=== PATIENT | male | born 1960 | race Two or more races ===

== ENCOUNTER 2017-01-22 12:31 | Inpatient (IN) | payer OTHER ==
[~2017-01-22] VITALS: Ht 162.6 cm; Wt 104.3 kg
--- NOTE | 2017-01-22 13:53 | PHYS DOC ---
Past Medical History Past Medical History: Diabetes-Type I, High Cholesterol, Hypertension Past Surgical History: No Surgical History Alcohol Use: Occasionally Drug Use: None Adult General Chief Complaint Chief Complaint: WEAKNESS/GENERALIZED HPI HPI Patient is a 56 year old male who presents with right arm numbness and tingling since Sunday that comes and goes. Patient was visiting family upstairs in the hospital and the nurses convinced him come to the emergency room to be evaluated. Agent believes is related to his new insulin and states that every time he gives himself a shot of insulin his right arm becomes numb and tingling and then it resolved shortly after. Patient denies any headache or vision changes. Patient denies any neck pain. Patient denies any chest pain or shortness of breath. Patient denies any other symptoms. Currently the patient in the emergency room has no symptoms and is asymptomatic. Pertinent exam findings: Cranial nerves II through XII are grossly intact with no focal neurological deficits. Heart regular rate and rhythm without murmurs CTAB No Altered sensation between the right and left upper shoulder and ED course: Patient was seen and evaluated in the emergency room CBC, CMP, troponin, CT of the head without contrast was ordered 1600: Patient is reexamined stating he is asymptomatic however the CT scan shows an acute stroke to the left brain and will omit to the hospital Dr. Shannon is his PCP 1605: Paged Dr. Shannon 1612: Discussed CC/HP/PMH with Dr. Rangel and recommends admit and consult neurology Pertinent results: CT scan of brain was done without contrast. Visualized sinuses are clear. There is no intracranial hemorrhage or subdural hematoma. Ventricles are normal in size. There is no mass or shift of the midline. There is a focus of decreased attenuation in the white matter adjacent to the lateral ventricle in the on the left side consistent with an acute CVA. Impression: 1. 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 2. No intracranial hemorrhage CXR: NAD MDM: After reviewing the chart, CC/HPI/PMH, physical exam, [lab results], [ radiological results], do not believe the patient is a candidate for TPA since his last known well was Sunday however since he does have an acute stroke and is only 56 years old will admit to the hospital for further evaluation and management and consult neurology Review of Systems Review of Systems Constitutional: Denies fever or chills [] Eyes: Denies change in visual acuity, redness, or eye pain [] HENT: Denies nasal congestion or sore throat [] Respiratory: Denies cough or shortness of breath [] Cardiovascular: No additional information not addressed in HPI [] GI: Denies abdominal pain, nausea, vomiting, bloody stools or diarrhea [] : Denies dysuria or hematuria [] Musculoskeletal: Denies back pain or joint pain [] Integument: Denies rash or skin lesions [] Neurologic: Numbness and tingling to right upper extremity Allergies Allergies Allergies Coded Allergies Type Severity Reaction Last Updated Verified No Known Drug Allergies 01/22/17 No Physical Exam Physical Exam Constitutional: Well developed, well nourished, no acute distress, non-toxic appearance. [] HENT: Normocephalic, atraumatic, bilateral external ears normal, oropharynx moist, no oral exudates, nose normal. [] Eyes: PERRLA, EOMI, conjunctiva normal, no discharge. [] Neck: Normal range of motion, no tenderness, supple, no stridor. [] Cardiovascular:Heart rate regular rhythm, no murmur [] Lungs & Thorax: Bilateral breath sounds clear to auscultation [] Abdomen: Bowel sounds normal, soft, no tenderness, no masses, no pulsatile masses. [] Skin: Warm, dry, no erythema, no rash. [] Back: No tenderness, no CVA tenderness. [] Extremities: No tenderness, no cyanosis, no clubbing, ROM intact, no edema. [] Neurologic: Alert and oriented X 3, normal motor function, normal sensory function, no focal deficits noted. [] Psychologic: Affect normal, judgement normal, mood normal. [] Current Patient Data Vital Signs Vital Signs Date Time Temp Pulse Resp B/P (MAP) Pulse Ox O2 Delivery O2 Flow Rate FiO2 01/22/17 13:11 98.5 73 18 170/80 (110) 98 Room Air 98.5 Lab Values Laboratory Tests Test 01/22/17 13:16 01/22/17 14:18 Glucose (Fingerstick) 307 mg/dL (70-99) H White Blood Count 9.7 x10^3/uL (4.0-11.0) Red Blood Count 5.44 x10^6/uL (4.30-5.70) Hemoglobin 15.0 g/dL (13.0-17.5) Hematocrit 45.9 % (39.0-53.0) Mean Corpuscular Volume 84 fL (79-100) Mean Corpuscular Hemoglobin 28 pg (25-35) Mean Corpuscular Hemoglobin Concent 33 g/dL (31-37) Red Cell Distribution Width 14.0 % (11.5-14.5) Platelet Count 152 x10^3/uL (140-400) Neutrophils (%) (Auto) 65 % (31-73) Lymphocytes (%) (Auto) 25 % (24-48) Monocytes (%) (Auto) 7 % (0-9) Eosinophils (%) (Auto) 3 % (0-3) Basophils (%) (Auto) 1 % (0-3) Neutrophils # (Auto) 6.3 x10^3uL (1.8-7.7) Lymphocytes # (Auto) 2.4 x10^3/uL (1.0-4.8) Monocytes # (Auto) 0.7 x10^3/uL (0.0-1.1) Eosinophils # (Auto) 0.2 x10^3/uL (0.0-0.7) Basophils # (Auto) 0.1 x10^3/uL (0.0-0.2) Sodium Level 140 mmol/L (136-145) Potassium Level 4.5 mmol/L (3.5-5.1) Chloride Level 104 mmol/L (98-107) Carbon Dioxide Level 26 mmol/L (21-32) Anion Gap 10 (6-14) Blood Urea Nitrogen 20 mg/dL (8-26) Creatinine 0.9 mg/dL (0.7-1.3) Estimated GFR (Cockcroft-Gault) 87.3 BUN/Creatinine Ratio 22 (6-20) H Glucose Level 304 mg/dL (70-99) H Calcium Level 9.0 mg/dL (8.5-10.1) Total Bilirubin 0.3 mg/dL (0.2-1.0) Aspartate Amino Transferase (AST) 23 U/L (15-37) Alanine Aminotransferase (ALT) 51 U/L (16-63) Alkaline Phosphatase 162 U/L (46-116) H Troponin I Quantitative < 0.017 ng/mL (0.000-0.055) Total Protein 6.9 g/dL (6.4-8.2) Albumin 3.1 g/dL (3.4-5.0) L Albumin/Globulin Ratio 0.8 (1.0-1.7) L Laboratory Tests 01/22/17 14:18 Laboratory Tests 01/22/17 14:18 EKG EKG Normal sinus rhythm rate of 70 no STEMI [] Radiology/Procedures Radiology/Procedures History: Right arm paresthesias CT scan of brain was done without contrast. Visualized sinuses are clear. There is no intracranial hemorrhage or subdural hematoma. Ventricles are normal in size. There is no mass or shift of the midline. There is a focus of decreased attenuation in the white matter adjacent to the lateral ventricle in the on the left side consistent with an acute CVA. Impression: 1. 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 2. No intracranial hemorrhage CXR: NAD[] Course & Med Decision Making Course & Med Decision Making Pertinent Labs and Imaging studies reviewed. (See chart for details) [] Dragon Disclaimer Dragon Disclaimer This electronic medical record was generated, in whole or in part, using a voice recognition dictation system. Departure Departure Impression: Primary Impression: CVA (cerebral vascular accident) Admitting Physician: Other (Juan Carlos) Condition: STABLE Referrals: JEAN SHANNON MD (PCP) Problem Qualifiers Primary Impression: CVA (cerebral vascular accident) CVA mechanism: occlusion Precerebral and cerebral artery: unspecified precerebral artery Qualified Codes: I63.20 - Cerebral infarction due to unspecified occlusion or stenosis of unspecified precerebral arteries ANNEMARIE ZHANG DO January 22, 2017 13:53
--- NOTE | 2017-01-22 14:10 | RAD ---
Portable AP chest. History: Right arm paresthesias x2 days, hypertension, diabetes AP view was taken of the chest. Lungs are free of infiltrates. Heart is normal in size. There is no pleural effusion. There is a calcified lesion in the humerus on the left suggesting a chondroid tumor such as an in chondroma. Impression: 1. No acute infiltrates. 2. Chondroid lesion left humerus.
[2017-01-22 14:29] LABS: BASO # 0.1 x10^3/uL (0.0-0.2); BASO % 1 % (0-3); EOS % 3 % (0-3); HEMATOCRIT 45.9 % (39.0-53.0); LYMPH # 2.4 x10^3/uL (1.0-4.8); LYMPH % 25 % (24-48); MEAN CORPUSCULAR HEMOGLOBIN 28 pg (25-35); MEAN CORPUSCULAR HGB CONC 33 g/dL (31-37); MEAN CORPUSCULAR VOLUME 84 fL (79-100); MONO % 7 % (0-9); NEUT % 65 % (31-73); PLATELET COUNT 152 x10^3/uL (140-400); RED BLOOD COUNT 5.44 x10^6/uL (4.30-5.70); WHITE BLOOD COUNT 9.7 x10^3/uL (4.0-11.0)
--- NOTE | 2017-01-22 14:46 | EKG ---
[facility] [address] [place] [address] Test Date: 2017-01-22 Test Time: 13:10:08 Pat Name: TARA ESPARZA Department: Room: Gender: M [employer]: : 1960 Requested By: ANNEMARIE ZHANG Order Number: [id number] Reading MD: Son Cross Measurements Intervals [place] Rate: 70 P: 18 [place]: 184 QRS: -39 QRSD: 90 T: 73 QT: 396 QTc: 430 Interpretive Statements SINUS RHYTHM ABNORMAL LEFT AXIS DEVIATION LEFT ANTERIOR FASCICULAR BLOCK Electronically Signed On 01-23-2017 10:37:17 CDT by Son Cross
[2017-01-22 14:47] LABS: CREATININE 0.9 mg/dL (0.7-1.3); GFR 87.3; POTASSIUM 4.5 mmol/L (3.5-5.1)
--- NOTE | 2017-01-22 14:47 | RAD ---
One or more of the following individualized dose reduction techniques were utilized for this examination: 1. Automated exposure control 2. Adjustment of the mA and/or kV according to patient size 3. Use of iterative reconstruction technique CT brain without contrast. History: Right arm paresthesias CT scan of brain was done without contrast. Visualized sinuses are clear. There is no intracranial hemorrhage or subdural hematoma. Ventricles are normal in size. There is no mass or shift of the midline. There is a focus of decreased attenuation in the white matter adjacent to the lateral ventricle in the on the left side consistent with an acute CVA. Impression: 1. 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 2. No intracranial hemorrhage
[2017-01-22 14:53] LABS: ALBUMIN 3.1 g/dL (3.4-5.0); ALBUMIN/GLOBULIN RATIO 0.8 (1.0-1.7); TOTAL BILIRUBIN 0.3 mg/dL (0.2-1.0); TOTAL PROTEIN 6.9 g/dL (6.4-8.2)
[2017-01-22] MEDS ORDERED: MORPHINE SULFATE 2 MG/ML DISP.SYRIN. IV PRN (16:30)
[2017-01-22] MEDS ORDERED: ONDANSETRON PF 4 MG/2 ML VIAL. IV PRN (16:30)
[2017-01-22 18:07] VITALS: BP 179/81
[2017-01-22] MEDS ORDERED: LISI10TA2 PO (18:34)
[2017-01-22] MEDS ORDERED: INSU100I13 SQ (18:34)
[2017-01-22] MEDS ORDERED: EXEN10PE SQ (18:34)
[2017-01-22] MEDS ORDERED: METF500T4 PO (18:35)
[2017-01-22] MEDS ORDERED: ATOR40TA59 PO (18:35)
[2017-01-22] MEDS ORDERED: LISINOPRIL 20 MG TABLET PO ONE (20:00)
[2017-01-22] MEDS: hydrALAZINE 20 MG/ML VIAL. IVP PRN (20:38)
[2017-01-22] MEDS: INSULIN DETEMIR 300 UNITS/3 ML INSULN.PEN. SQ SCH (20:49)
[2017-01-22] MEDS ORDERED: CETI10TA22 PO (22:09)
--- NOTE | 2017-01-22 22:12 | ACF ---
Admission Forms Criteria TELEMETRY CARE Telemetry Admission Guidelines (Place 'X' for any and all applicable criteria): Admission to telemetry [A] may be indicated for ANY ONE of the following(1)(2)(3 )(4)(5): [ ]I. Cardiac disease, including ANY ONE of the following (9)(10)(11)(12)(13 ): [ ]a) Postacute WI [ ]b) Low-risk patients with ST-segment elevation WI who have undergone successful percutaneous coronary intervention [ ]c) Unstable angina [ ]d) Suspected WI (until it is ruled out) [ ]e) Post cardiac surgery (first 48 to 72 hours unless complications occur) [ ]f) Acute arrhythmias (including significant tachycardia or bradycardia) [B] [ ]g) Firing of an implantable cardioverter defibrillator [C] [ ]h) Suspected pacemaker or implantable cardioverter defibrillator malfunction (10) [ ]i) New administration or adjustment of an antiarrhythmic drug [D ] [ ]j) Child admitted for acute congestive heart failure [ ]j) Long QT syndrome [ ]k) Advanced heart block (eg, second-degree Mobitz type II, third- degree heart block) [ ]l) Acute myocarditis or pericarditis [ ]m) Short-term (ambulatory or inpatient) monitoring after a cardiac procedure as indicated by ANY ONE of the following [E]: [ ]i) Electrophysiologic studies [ ]ii) Percutaneous coronary intervention with stent placement [ ]iii) Pacemaker placement with cardiac conduction defect [ ]iv) Implantable cardiac defibrillator placement [ ]II. Drug overdose or poisoning with substance that causes arrhythmias or QT prolongation (eg, phenothiazines, sympathomimetic agents, cyclic antidepressants, digitalis, antiarrhythmic drugs)(15) [ ]III. Short-term (ambulatory or inpatient) monitoring after therapeutic or diagnostic procedure requiring conscious sedation or anesthesia (eg, endoscopy, elective cardioversion) [X ]IV. Acute cerebrovascular even[F](18) [ ]V. Massive blood transfusion (eg, at least 10 units of packed red blood cells in 24 hours) [ ]. Variceal bleeding after endoscopy, sclerotherapy, or IV vasopressin [ ]VII. Uncorrected electrolyte abnormalities associated with an increased risk of dangerous arrhythmia [G]; examples include [ ]a) Hyperkalemia with attributable ECG changes [ ]b) Potassium greater than 6.5 mmol/L (mEq/L) in a patient without history of chronic renal disease [ ]c) Prolonged QT attributed to hypokalemia, hypomagnesemia, or hypocalcemia [ ]VIII.Unexplained syncope or other neurologic event suspected of being due to arrhythmia due to a finding that increases risk; examples include(19)(20)(21): [ ]a) High-risk ECG findings (eg, bifascicular block, bradycardia, abnormal QT interval, ventricular pre- excitation) [ ]b) History of previous syncope due to arrhythmia [ ]c) Abnormal ventricular function (eg, reduced ejection fraction ) [ ]d) Exertional or supine syncope [ ]e) Concerning syncope characteristics (eg, sudden loss of consciousness without prodrome) [ ]f) Family history of sudden [ ]g) Use of arrhythmogenic medication [ ]h) Suspected cardiac ischemia [ ]i) Known channelopathy (eg, long QT syndrome, Brugada syndrome, or catecholaminergic paroxysmal ventricular tachycardia) [ ]j) Known structural heart disease (eg, hypertrophic cardiomyopathy , severe valvular disease) [ ]k) Palpitations preceding syncope The original [employer] content created by [employer] has been revised. The portions of the content which have been revised are identified through the use of italic text or in bold, and [email or web address] has neither reviewed nor approved the modified material. All other unmodified content is copyright [employer]. Please see references footnoted in the original [employer] edition 2016 Admission Criteria Met?: Yes CHRISTIANE LOPES January 22, 2017 22:12
[2017-01-22] MEDS ORDERED: CETIRIZINE HCL 10 MG TABLET. PO ONE (22:30)
[2017-01-22 23:31] VITALS: BP 161/84
[2017-01-23] VITALS (7 sets, daily range): BP systolic 126–170; BP diastolic 70–96
[2017-01-23] MEDS ORDERED: INSU3INS SQ (05:45)
[2017-01-23 06:02] LABS: BASO # 0.1 x10^3/uL (0.0-0.2); BASO % 1 % (0-3); EOS % 2 % (0-3); HEMATOCRIT 44.9 % (39.0-53.0); HEMOGLOBIN 15.3 g/dL (13.0-17.5); LYMPH # 2.4 x10^3/uL (1.0-4.8); LYMPH % 22 % (24-48); MEAN CORPUSCULAR HEMOGLOBIN 28 pg (25-35); MEAN CORPUSCULAR HGB CONC 34 g/dL (31-37); MEAN CORPUSCULAR VOLUME 82 fL (79-100); MONO % 6 % (0-9); NEUT % 70 % (31-73); PLATELET COUNT 156 x10^3/uL (140-400); RED BLOOD COUNT 5.49 x10^6/uL (4.30-5.70); RED CELL DISTRIBUTION WIDTH 14.2 % (11.5-14.5); WHITE BLOOD COUNT 11.1 x10^3/uL (4.0-11.0)
[2017-01-23 06:12] LABS: CALCIUM 8.4 mg/dL (8.5-10.1); CREATININE 0.9 mg/dL (0.7-1.3); GFR 87.3; POTASSIUM 3.4 mmol/L (3.5-5.1)
[2017-01-23] MEDS: CETIRIZINE HCL 10 MG TABLET. PO SCH (08:31)
[2017-01-23] MEDS: LISINOPRIL 20 MG TABLET PO SCH (08:32)
[2017-01-23] MEDS ORDERED: DEXTROSE 50% 25 GM / 50ML DISP.SYRIN. IV PRN ×2 (09:00)
[2017-01-23] MEDS ORDERED: 0.9 % SODIUM CHLORIDE 10 ML DISP.SYRIN. IV PRN (09:00)
[2017-01-23] MEDS ORDERED: ACETAMINOPHEN 650 MG SUPP.RECT. PR PRN (09:00)
[2017-01-23] MEDS ORDERED: ONDANSETRON PF 4 MG/2 ML VIAL. IV PRN (09:00)
[2017-01-23] MEDS: ACETAMINOPHEN 325 MG TABLET. PO PRN ×2 (09:32→21:42)
[2017-01-23] MEDS: ASPIRIN CHEWABLE 81 MG TABLET. PO SCH (09:32)
[2017-01-23] MEDS: IV NORMAL SALINE 1000ML BAG 1,000 ML IV SCH ×2 (09:33→19:26)
[2017-01-23] MEDS: hydrALAZINE 20 MG/ML VIAL. IVP PRN (10:42)
--- NOTE | 2017-01-23 11:27 | HP ---
ADMIT DATE: 01/22/2017 ADMISSION DIAGNOSIS: Cerebrovascular accident. HISTORY OF PRESENT ILLNESS: This is a 56-year-old male with hypertension, type 2 diabetes complicated by retinal hemorrhage in the past year for which he is no longer anticoagulated with aspirin. We have had difficulty controlling his A1c over the years and recently he was started on Xultophy 100-3.6 and he took it for a couple of days, but had difficulty controlling his sugar and went back to his usual Lantus, NovoLog combination. He started noting on Sunday when he had some tingling in his right hand, but his mother was here in the hospital and eventually he presented to the Emergency Room. He thought the numbness might be related to insulin injection. He did not have any other symptoms. He was not having any focal weakness, was not having any vision trouble, was not having any weakness. PAST MEDICAL HISTORY: Significant for type 2 diabetes, but on insulin; hyperlipidemia; hypertension. He has had retinal hemorrhage. PAST SURGICAL HISTORY: Negative. SOCIAL HISTORY: Negative for alcohol or tobacco. He regularly rides his bicycle to work and stays physically active. FAMILY HISTORY: Diabetes and coronary artery disease. REVIEW OF SYSTEMS: He denies any weakness. No constitutional symptoms. No weight loss, no fever, no chills. HEENT: Positive for allergies and some congestion. CARDIOVASCULAR: Negative for chest pain or palpitations. PULMONARY: Negative for cough, wheezing or shortness of breath. GASTROINTESTINAL: Negative for nausea, vomiting or change in bowels. GENITOURINARY: Negative for urgency or blood in his urine. MUSCULOSKELETAL: Negative for weakness. NEUROLOGIC: As above, which is some tingling in his right hand. OPHTHALMOLOGY: No change in his vision. PSYCHIATRIC: No depression or insomnia. PHYSICAL EXAMINATION: VITAL SIGNS: He was hypertensive in the ER at 179/81, pressure this morning is 145/76. He is afebrile. Oxygen saturations are normal on room air. Respiratory rate is normal. Heart rate is normal. Monitor showing sinus rhythm. GENERAL: He is not in any distress. He is alert and oriented. HEENT: He had some allergic features, but minimal congestion. Eyes are not watery. Mucous membranes are moist. NECK: Supple. HEART: Regular rate and rhythm without murmur heard. LUNGS: Clear to auscultation. ABDOMEN: Obese, soft, nondistended, nontender. SKIN: Without any bruising. No joint pain. MUSCULOSKELETAL: Shows no focal weakness in the upper or lower extremities. NEUROLOGIC: He is alert and oriented and appropriate mood and affect. He has family present with him. LABORATORY DATA: Potassium has dropped to 3.4 this morning from 4.5 yesterday. Glucose has dropped from 304 yesterday to 91. Alkaline phosphatase was 162, albumin 3.1. Cardiac enzymes are negative. The rest of his chemistry panel is unremarkable. His white count has jumped from 9.7-11.1, the significance of that is unclear. The rest of his CBC is normal. IMAGING STUDIES: Chest x-ray was unremarkable, but it does show a chondroid lesion in the left humerus. Head CT shows white matter CVA adjacent to the lateral ventricle on the left. There is no mass or shift to the midline. There is no intracranial hemorrhage or subdural. Sinuses are clear. ASSESSMENT: 1. Cerebrovascular accident. 2. Type 2 diabetes with poor control. 3. Hypertension. 4. Hyperlipidemia. 5. Obesity. 6. History of retinal hemorrhage, off aspirin since then. PLAN: Dr. Fairchild will see him in neurologic consultation. He is currently n.p.o. He has an MRI of the brain ordered. Carotid Dopplers ordered. Hemoglobin A1c ordered. Lipid panel ordered. SCDs will be placed. PT, OT and speech therapy to see, bedside swallow to be done, but at this point, there is no exam evidence of any sequelae from his CVA. His glucose will be controlled with insulin and sliding scale. His blood pressure has improved with lisinopril and p.r.n. hydralazine IV. His home meds are not well categorized in the chart and I will have to defer to his office chart which is on a separate system, but he is no longer taking the Xultophy. He is back on Lantus and NovoLog. He is not taking Byetta. Apparently he has been taking his atorvastatin 40 mg, lisinopril 10, metformin 500 b.i.d. and Zyrtec 10. ALLERGIES: He has no known drug allergies. W Alexander SHANNON MD DR: DEANDRE/lucrecia JOB#: [id number] / [id number]
[2017-01-23] MEDS ORDERED: INSULIN ASPART 300 UNITS/3 ML INSULN.PEN SQ ONE (11:45)
--- NOTE | 2017-01-23 11:52 | PDOC2 ---
NEUROLOGY CONSULT Date of Admission Date of Admission DATE: 01/23/17 TIME: 11:47 Reason for Consult Reason for Consult: Stroke Referring Physician Referring Physician: Dr. Schofield Source Source: Chart review, Patient History of Present Illness History of Present Illness The patient is a 56-year-old right-handed male who noticed some right arm numbness and difficulty speaking 3 days ago. He was visiting his mother in the hospital and notice the symptoms again yesterday and came to the merger department. He feels fine now. There is no history of stroke, seizure, or head injury. He was on a daily aspirin, which was discontinued a year ago due to retinal hemorrhage. Past Medical History Cardiovascular: HTN, Hyperlipidemia Endocrine: Diabetes Past Surgical History Past Surgical History: No pertinent history Family History Family History: CAD Social History Social History , no alcohol or tobacco Current Medications Current Medications Current Medications Ondansetron HCl (Zofran) 4 mg PRN Q8HRS PRN IV NAUSEA/VOMITING; Start 01/22/17 at 16:30; Stop 01/23/17 at 16:29 Morphine Sulfate 2 mg PRN Q2HR PRN IV PAIN; Start 01/22/17 at 16:30; Stop 01/23 at 16:29 Hydralazine HCl (Apresoline) 10 mg PRN Q4HRS PRN IVP ELEVATED BP, SEE COMMENTS Last administered on 01/23/17 10:42; Start 01/22/17 at 20:00 Lisinopril (Prinivil) 20 mg DAILY PO Last administered on 01/23/17 08:32; Start 01/23/17 at 09:00 Lisinopril (Prinivil) 20 mg 1X ONCE PO Last administered on 01/22/17 20:37; Start 01/22/17 at 20:00; Stop 01/22/17 at 20:01; Status DC Insulin Detemir (Levemir) 30 units QHS SQ Last administered on 01/22/17 20:49 ; Start 01/22/17 at 21:00 Cetirizine HCl (ZyrTEC) 10 mg DAILY PO Last administered on 01/23/17 08:31; Start 01/23/17 at 09:00 Cetirizine HCl (ZyrTEC) 10 mg 1X ONCE PO Last administered on 01/22/17 22:24 ; Start 01/22/17 at 22:30; Stop 01/22/17 at 22:31; Status DC Sodium Chloride (Normal Saline Flush) 3 ml QSHIFT PRN IV AFTER MEDS AND BLOOD DRAWS; Start 01/23/17 at 09:00 Sodium Chloride 1,000 ml @ 100 mls/hr Q10H IV Last administered on 01/23/17 09:33; Start 01/23/17 at 09:30 Aspirin (Children'S Aspirin) 81 mg DAILYWBKFT PO Last administered on 09:32; Start 01/23/17 at 10:00 Acetaminophen (Tylenol) 650 mg PRN Q6HRS PRN PO FEVER Last administered on 01/23 09:32; Start 01/23/17 at 09:00 Acetaminophen (Acetaminophen Supp) 650 mg PRN Q6HRS PRN [place] FEVER; Start at 09:00 Ondansetron HCl (Zofran) 4 mg PRN Q6HRS PRN IV NAUSEA/VOMITING; Start 01/23/17 at 09:00 Insulin Aspart (NovoLOG) 0-7 UNITS TIDWMEALS SQ ; Start 01/23/17 at 12:00 Dextrose (Dextrose 50%-Water Syringe) 12.5 gm PRN Q15MIN PRN IV SEE COMMENTS; Start 01/23/17 at 09:00; Status UNV Dextrose (Dextrose 50%-Water Syringe) 12.5 gm PRN Q15MIN PRN IV SEE COMMENTS; Start 01/23/17 at 09:00 Insulin Aspart (NovoLOG) 15 units 1X ONCE SQ ; Start 01/23/17 at 11:45; Stop at 11:46; Status UNV Active Scripts Active Reported Xultophy 100 Unit-3.6 mg/ml (Insulin Degludec/Liraglutide) 3 Ml Insuln.pen 18 Units SQ TIDPC Zyrtec (Cetirizine Hcl) 10 Mg Tablet 10 Mg PO DAILY Metformin Hcl 500 Mg Tablet 500 Mg PO BIDWMEALS Atorvastatin Calcium 40 Mg Tablet 1 Tab PO DAILY Lantus Solostar (Insulin Glargine,Hum.rec.anlog) 100 Unit/1 Ml Insuln.pen 30 Unit SQ QHS Byetta (Exenatide) 10 Mcg/0.04 Ml Pen.injctr 10 Mcg SQ BID Lisinopril 10 Mg Tablet 1 Tab PO DAILY Allergies Allergies: Coded Allergies: No Known Drug Allergies (Unverified , 01/22/17) ROS Review of System Negative for fevers, chills, weight loss, shortness of breath, chest pain, indigestion, hematochezia, melena, dysuria. Full 14-point review systems is negative. Physical Exam Physical Examination PHYSICAL EXAMINATION: Vital signs: see above. General appearance is normal and in no acute distress. HEENT: Normocephalic and nontraumatic. Eyes, nose, ears, and throat are unremarkable. Neck is supple. No lymphadenopathy. No bruits are heard over the carotid artery. No crepitus. NEUROLOGICAL EXAMINATION: Mental Status Examination: Alert. Oriented to time, place, and person. Answers questions and follows commends. Pupils are equal round and reactive to light and accommodation. Funduscopic exam: No papilledema. Extraocular movements are intact. Visual field exam shows no defect on the direct confrontation. No motor or sensory deficits on the facial exam. Uvula in the midline and the soft palate elevated symmetrically. No deviation of the tongue to any direction. Gross hearing is normal. Shoulder shrug normal. Muscle tone is normal. Muscle strength is 5. Deep tendon reflexes are 2+ all around. Plantar reflex is with flexion response bilaterally. [id number] test performance is accurate. Tandem walk test is accurate. Alternative movements are accurate. Romberg test is negative. Gait is normal. Sensory exam shows no deficits. No cerebellar signs are elicited. Vitals VITALS Vital Signs Date Time Temp Pulse Resp B/P (MAP) Pulse Ox O2 Delivery O2 Flow Rate FiO2 01/23/17 10:42 82 163/96 01/23/17 10:34 98.6 18 98 Room Air 98.6 Labs Labs Laboratory Tests Test 01/22/17 13:16 01/22/17 14:18 01/22/17 20:42 01/23/17 05:40 Glucose (Fingerstick) 307 mg/dL (70-99) 178 mg/dL (70-99) White Blood Count 9.7 x10^3/uL (4.0-11.0) 11.1 x10^3/uL (4.0-11.0) Red Blood Count 5.44 x10^6/uL (4.30-5.70) 5.49 x10^6/uL (4.30-5.70) Hemoglobin 15.0 g/dL (13.0-17.5) 15.3 g/dL (13.0-17.5) Hematocrit 45.9 % (39.0-53.0) 44.9 % (39.0-53.0) Mean Corpuscular Volume 84 fL (79-100) 82 fL (79-100) Mean Corpuscular Hemoglobin 28 pg (25-35) 28 pg (25-35) Mean Corpuscular Hemoglobin Concent 33 g/dL (31-37) 34 g/dL (31-37) Red Cell Distribution Width 14.0 % (11.5-14.5) 14.2 % (11.5-14.5) Platelet Count 152 x10^3/uL (140-400) 156 x10^3/uL (140-400) Neutrophils (%) (Auto) 65 % (31-73) 70 % (31-73) Lymphocytes (%) (Auto) 25 % (24-48) 22 % (24-48) Monocytes (%) (Auto) 7 % (0-9) 6 % (0-9) Eosinophils (%) (Auto) 3 % (0-3) 2 % (0-3) Basophils (%) (Auto) 1 % (0-3) 1 % (0-3) Neutrophils # (Auto) 6.3 x10^3uL (1.8-7.7) 7.7 x10^3uL (1.8-7.7) Lymphocytes # (Auto) 2.4 x10^3/uL (1.0-4.8) 2.4 x10^3/uL (1.0-4.8) Monocytes # (Auto) 0.7 x10^3/uL (0.0-1.1) 0.7 x10^3/uL (0.0-1.1) Eosinophils # (Auto) 0.2 x10^3/uL (0.0-0.7) 0.2 x10^3/uL (0.0-0.7) Basophils # (Auto) 0.1 x10^3/uL (0.0-0.2) 0.1 x10^3/uL (0.0-0.2) Sodium Level 140 mmol/L (136-145) 141 mmol/L (136-145) Potassium Level 4.5 mmol/L (3.5-5.1) 3.4 mmol/L (3.5-5.1) Chloride Level 104 mmol/L (98-107) 107 mmol/L (98-107) Carbon Dioxide Level 26 mmol/L (21-32) 26 mmol/L (21-32) Anion Gap 10 (6-14) 8 (6-14) Blood Urea Nitrogen 20 mg/dL (8-26) 13 mg/dL (8-26) Creatinine 0.9 mg/dL (0.7-1.3) 0.9 mg/dL (0.7-1.3) Estimated GFR (Cockcroft-Gault) 87.3 87.3 BUN/Creatinine Ratio 22 (6-20) Glucose Level 304 mg/dL (70-99) 87 mg/dL (70-99) Calcium Level 9.0 mg/dL (8.5-10.1) 8.4 mg/dL (8.5-10.1) Total Bilirubin 0.3 mg/dL (0.2-1.0) Aspartate Amino Transf (AST/SGOT) 23 U/L (15-37) Alanine Aminotransferase (ALT/SGPT) 51 U/L (16-63) Alkaline Phosphatase 162 U/L (46-116) Troponin I Quantitative < 0.017 ng/mL (0.000-0.055) Total Protein 6.9 g/dL (6.4-8.2) Albumin 3.1 g/dL (3.4-5.0) Albumin/Globulin Ratio 0.8 (1.0-1.7) Test 01/23/17 07:09 01/23/17 11:30 Glucose (Fingerstick) 91 mg/dL (70-99) 438 mg/dL (70-99) Laboratory Tests Test 01/22/17 13:16 01/22/17 14:18 01/22/17 20:42 01/23/17 05:40 Glucose (Fingerstick) 307 mg/dL (70-99) 178 mg/dL (70-99) White Blood Count 9.7 x10^3/uL (4.0-11.0) 11.1 x10^3/uL (4.0-11.0) Red Blood Count 5.44 x10^6/uL (4.30-5.70) 5.49 x10^6/uL (4.30-5.70) Hemoglobin 15.0 g/dL (13.0-17.5) 15.3 g/dL (13.0-17.5) Hematocrit 45.9 % (39.0-53.0) 44.9 % (39.0-53.0) Mean Corpuscular Volume 84 fL (79-100) 82 fL (79-100) Mean Corpuscular Hemoglobin 28 pg (25-35) 28 pg (25-35) Mean Corpuscular Hemoglobin Concent 33 g/dL (31-37) 34 g/dL (31-37) Red Cell Distribution Width 14.0 % (11.5-14.5) 14.2 % (11.5-14.5) Platelet Count 152 x10^3/uL (140-400) 156 x10^3/uL (140-400) Neutrophils (%) (Auto) 65 % (31-73) 70 % (31-73) Lymphocytes (%) (Auto) 25 % (24-48) 22 % (24-48) Monocytes (%) (Auto) 7 % (0-9) 6 % (0-9) Eosinophils (%) (Auto) 3 % (0-3) 2 % (0-3) Basophils (%) (Auto) 1 % (0-3) 1 % (0-3) Neutrophils # (Auto) 6.3 x10^3uL (1.8-7.7) 7.7 x10^3uL (1.8-7.7) Lymphocytes # (Auto) 2.4 x10^3/uL (1.0-4.8) 2.4 x10^3/uL (1.0-4.8) Monocytes # (Auto) 0.7 x10^3/uL (0.0-1.1) 0.7 x10^3/uL (0.0-1.1) Eosinophils # (Auto) 0.2 x10^3/uL (0.0-0.7) 0.2 x10^3/uL (0.0-0.7) Basophils # (Auto) 0.1 x10^3/uL (0.0-0.2) 0.1 x10^3/uL (0.0-0.2) Sodium Level 140 mmol/L (136-145) 141 mmol/L (136-145) Potassium Level 4.5 mmol/L (3.5-5.1) 3.4 mmol/L (3.5-5.1) Chloride Level 104 mmol/L (98-107) 107 mmol/L (98-107) Carbon Dioxide Level 26 mmol/L (21-32) 26 mmol/L (21-32) Anion Gap 10 (6-14) 8 (6-14) Blood Urea Nitrogen 20 mg/dL (8-26) 13 mg/dL (8-26) Creatinine 0.9 mg/dL (0.7-1.3) 0.9 mg/dL (0.7-1.3) Estimated GFR (Cockcroft-Gault) 87.3 87.3 BUN/Creatinine Ratio 22 (6-20) Glucose Level 304 mg/dL (70-99) 87 mg/dL (70-99) Calcium Level 9.0 mg/dL (8.5-10.1) 8.4 mg/dL (8.5-10.1) Total Bilirubin 0.3 mg/dL (0.2-1.0) Aspartate Amino Transf (AST/SGOT) 23 U/L (15-37) Alanine Aminotransferase (ALT/SGPT) 51 U/L (16-63) Alkaline Phosphatase 162 U/L (46-116) Troponin I Quantitative < 0.017 ng/mL (0.000-0.055) Total Protein 6.9 g/dL (6.4-8.2) Albumin 3.1 g/dL (3.4-5.0) Albumin/Globulin Ratio 0.8 (1.0-1.7) Test 01/23/17 07:09 01/23/17 11:30 Glucose (Fingerstick) 91 mg/dL (70-99) 438 mg/dL (70-99) Images Images CT scan of brain was done without contrast. Visualized sinuses are clear. There is no intracranial hemorrhage or subdural hematoma. Ventricles are normal in size. There is no mass or shift of the midline. There is a focus of decreased attenuation in the white matter adjacent to the lateral ventricle in the on the left side consistent with an acute CVA. Impression: 1. 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 2. No intracranial hemorrhage Assessment/Plan Assessment/Plan Impression: Left basal ganglia lacunar infarct Off aspirin for a year Recommendations: Brain MRI Echocardiogram Carotid Doppler's Rehabilitation screening Statin Resume aspirin 81 mg daily Aim for discharge later today or tomorrow. Thank you for letting me help with the patient's care. HUNTER LEES MD January 23, 2017 11:52
[2017-01-23] MEDS: INSULIN ASPART 300 UNITS/3 ML INSULN.PEN SQ SCH ×2 (11:58→17:03)
[2017-01-23] MEDS ORDERED: METF500T9 PO (12:37)
[2017-01-23] MEDS ORDERED: LOSA100T6 PO (12:37)
[2017-01-23] MEDS ORDERED: ATEN100T PO (12:38)
--- NOTE | 2017-01-23 14:30 | RAD ---
EXAM: Brain MRI without contrast. HISTORY: Right arm numbness and slow speech. TECHNIQUE: Multiplanar, multisequence magnetic resonance imaging of the brain was performed without contrast. COMPARISON: Head CT dated 01/22/2017. FINDINGS: There is restricted diffusion within the left frontal periventricular white matter consistent with acute or subacute infarction. There is no susceptibility effect to suggest hemorrhage. There is no mass effect or midline shift. There is no hydrocephalus. There are few foci of T2/FLAIR hyperintensity within the cerebral white matter, a nonspecific finding likely due to chronic small vessel disease. There is a chronic lacunar infarct within the right thalamus. The orbits, paranasal sinuses and mastoid air cells are unremarkable. There are normal flow voids within the cerebral vessels. IMPRESSION: 1. Acute or subacute infarct within the left frontal periventricular white matter. 2. Few foci of signal change within the cerebral white matter, a nonspecific finding likely due to chronic small vessel disease. 3. Suspected chronic lacunar infarct within the right thalamus. Findings are discussed with Susan, the nurse caring for the patient, at 1420 hours on 01/23/2017 Electronically signed by: Janice Duran MD (01/23/2017 2:26 PM)
--- NOTE | 2017-01-23 16:39 | RAD ---
Bilateral duplex carotid sonography History: Stroke, hypertension. Duplex sonography of the cervical portion of both carotid arteries was performed. Findings: Right side: Peak systolic flow velocity of the CCA is 154 cm/sec. Peak systolic flow velocity of the ICA is 183 cm/sec. The ICA/CCA ratio is 1.19. Peak end diastolic flow velocity of the ICA is 38 cm/sec. The peak systolic velocity of the ECA is 108 cm/sec. Intimal thickening is seen involving the right common carotid artery. Diffuse calcified and noncalcified atherosclerotic plaquing can be seen involving the right carotid system. Left side: Peak systolic flow velocity of the CCA is 101 cm/sec. Peak systolic flow velocity of the ICA is 103 cm/sec. The ICA/CCA ratio is 1.02. Peak end diastolic flow velocity of the ICA is 25 cm/sec. Peak systolic flow velocity of the ECA is 217 cm/sec. Mild calcified and noncalcified plaquing is seen at the left carotid bulb. There is also evidence of mild noncalcified atherosclerotic plaquing involving the left common carotid artery. Vertebral arteries: Bilateral vertebral arteries demonstrate antegrade flow. Impression: 1. Fairly diffuse atherosclerotic plaquing is seen involving the right carotid system. There is elevation of velocity involving the right internal carotid artery corresponding to moderate (50-69% luminal diameter) stenosis. 2. Elevated velocity can be seen involving the left external carotid artery, compatible some component of stenosis. Note: Stenosis calculations for Doppler studies are derived from validated velocity criteria which are known to correlate with NASCET methodology of determining stenosis.
[2017-01-23] MEDS ORDERED: ALPRAZolam 0.25 MG TABLET PO PRN (19:30)
[2017-01-23] MEDS ORDERED: ATORVASTATIN CALCIUM 10 MG TABLET. PO SCH (21:00)
[2017-01-23] MEDS: INSULIN DETEMIR 300 UNITS/3 ML INSULN.PEN. SQ SCH (22:15)
[2017-01-24 03:00] VITALS: BP 169/94
[2017-01-24] MEDS ORDERED: SODIUM CHLORIDE 0.65% NASAL SPRAY 45ML BOTTLE. NS PRN (03:30)
[2017-01-24 04:56] LABS: CHOLESTEROL/HDL RATIO 3.6
[2017-01-24] MEDS: IV NORMAL SALINE 1000ML BAG 1,000 ML IV SCH (05:30)
[2017-01-24 07:00] VITALS: BP 145/86
[2017-01-24] MEDS: INSULIN ASPART 300 UNITS/3 ML INSULN.PEN SQ SCH ×2 (07:53→11:55)
[2017-01-24] MEDS: CETIRIZINE HCL 10 MG TABLET. PO SCH (08:13)
[2017-01-24] MEDS: ASPIRIN CHEWABLE 81 MG TABLET. PO SCH (08:13)
[2017-01-24] MEDS: LISINOPRIL 20 MG TABLET PO SCH (08:14)
[2017-01-24] MEDS ORDERED: FLUTICASONE 50MCG/NASAL SPRAY 16GM BOTTLE. NS SCH (09:00)
[2017-01-24 11:00] VITALS: BP 166/92
--- NOTE | 2017-01-24 11:31 | PDOC ---
PROGRESS NOTES Assessment Problems Medical Problems: (1) CVA (cerebral vascular accident) Status: Acute Left basal ganglia lacunar infarct Off aspirin for a year Subcritical bilateral carotid artery disease Plan Statin, monitoring of liver functions and muscle disease per primary physician Aspirin 81 mg daily Okay for discharge Echocardiogram pending, no need to wait for report Follow-up with neurology as needed Objective Vital Signs Date Time Temp Pulse Resp B/P (MAP) Pulse Ox O2 Delivery O2 Flow Rate FiO2 01/24/17 08:14 63 145/86 01/24/17 08:00 Room Air 01/24/17 07:00 97.9 20 98 97.9 Intake and Output 01/24/17 07:00 Intake Total 900 ml Balance 900 ml Intake Oral 900 ml # Voids 7 PHYSICAL EXAM Alert. Oriented to time, place and person. PERRL. EOMI. CN: no focal findings. Muscle tone: normal. Muscle strength: 5/5 DTR: 2+ Plantar reflex: flexor Gait: not examined in bed. Sensory exam: no abnormal findings. No cerebellar signs elicited. Review of Relevant I have reviewed the following items ruben (where applicable) has been applied. Labs Laboratory Tests Test 01/22/17 13:16 01/22/17 14:18 01/22/17 20:42 01/23/17 05:40 Glucose (Fingerstick) 307 mg/dL (70-99) 178 mg/dL (70-99) White Blood Count 9.7 x10^3/uL (4.0-11.0) 11.1 x10^3/uL (4.0-11.0) Red Blood Count 5.44 x10^6/uL (4.30-5.70) 5.49 x10^6/uL (4.30-5.70) Hemoglobin 15.0 g/dL (13.0-17.5) 15.3 g/dL (13.0-17.5) Hematocrit 45.9 % (39.0-53.0) 44.9 % (39.0-53.0) Mean Corpuscular Volume 84 fL (79-100) 82 fL (79-100) Mean Corpuscular Hemoglobin 28 pg (25-35) 28 pg (25-35) Mean Corpuscular Hemoglobin Concent 33 g/dL (31-37) 34 g/dL (31-37) Red Cell Distribution Width 14.0 % (11.5-14.5) 14.2 % (11.5-14.5) Platelet Count 152 x10^3/uL (140-400) 156 x10^3/uL (140-400) Neutrophils (%) (Auto) 65 % (31-73) 70 % (31-73) Lymphocytes (%) (Auto) 25 % (24-48) 22 % (24-48) Monocytes (%) (Auto) 7 % (0-9) 6 % (0-9) Eosinophils (%) (Auto) 3 % (0-3) 2 % (0-3) Basophils (%) (Auto) 1 % (0-3) 1 % (0-3) Neutrophils # (Auto) 6.3 x10^3uL (1.8-7.7) 7.7 x10^3uL (1.8-7.7) Lymphocytes # (Auto) 2.4 x10^3/uL (1.0-4.8) 2.4 x10^3/uL (1.0-4.8) Monocytes # (Auto) 0.7 x10^3/uL (0.0-1.1) 0.7 x10^3/uL (0.0-1.1) Eosinophils # (Auto) 0.2 x10^3/uL (0.0-0.7) 0.2 x10^3/uL (0.0-0.7) Basophils # (Auto) 0.1 x10^3/uL (0.0-0.2) 0.1 x10^3/uL (0.0-0.2) Sodium Level 140 mmol/L (136-145) 141 mmol/L (136-145) Potassium Level 4.5 mmol/L (3.5-5.1) 3.4 mmol/L (3.5-5.1) Chloride Level 104 mmol/L (98-107) 107 mmol/L (98-107) Carbon Dioxide Level 26 mmol/L (21-32) 26 mmol/L (21-32) Anion Gap 10 (6-14) 8 (6-14) Blood Urea Nitrogen 20 mg/dL (8-26) 13 mg/dL (8-26) Creatinine 0.9 mg/dL (0.7-1.3) 0.9 mg/dL (0.7-1.3) Estimated GFR (Cockcroft-Gault) 87.3 87.3 BUN/Creatinine Ratio 22 (6-20) Glucose Level 304 mg/dL (70-99) 87 mg/dL (70-99) Calcium Level 9.0 mg/dL (8.5-10.1) 8.4 mg/dL (8.5-10.1) Total Bilirubin 0.3 mg/dL (0.2-1.0) Aspartate Amino Transf (AST/SGOT) 23 U/L (15-37) Alanine Aminotransferase (ALT/SGPT) 51 U/L (16-63) Alkaline Phosphatase 162 U/L (46-116) Troponin I Quantitative < 0.017 ng/mL (0.000-0.055) Total Protein 6.9 g/dL (6.4-8.2) Albumin 3.1 g/dL (3.4-5.0) Albumin/Globulin Ratio 0.8 (1.0-1.7) Hemoglobin A1c 9.5 % (4.8-5.6) Test 01/23/17 07:09 01/23/17 11:30 01/23/17 14:22 01/23/17 16:51 Glucose (Fingerstick) 91 mg/dL (70-99) 438 mg/dL (70-99) 130 mg/dL (70-99) 216 mg/dL (70-99) Test 01/24/17 04:05 Triglycerides Level 98 mg/dL (0-150) Cholesterol Level 155 mg/dL (0-200) LDL Cholesterol, Calculated 92 mg/dL (0-100) VLDL Cholesterol, Calculated 20 mg/dL (0-40) Non-HDL Cholesterol Calculated 112 mg/dL (0-129) HDL Cholesterol 43 mg/dL (40-60) Cholesterol/HDL Ratio 3.6 Laboratory Tests Test 01/23/17 11:30 01/23/17 14:22 01/23/17 16:51 01/24/17 04:05 Glucose (Fingerstick) 438 mg/dL (70-99) 130 mg/dL (70-99) 216 mg/dL (70-99) Triglycerides Level 98 mg/dL (0-150) Cholesterol Level 155 mg/dL (0-200) LDL Cholesterol, Calculated 92 mg/dL (0-100) VLDL Cholesterol, Calculated 20 mg/dL (0-40) Non-HDL Cholesterol Calculated 112 mg/dL (0-129) HDL Cholesterol 43 mg/dL (40-60) Cholesterol/HDL Ratio 3.6 Medications Current Medications Ondansetron HCl (Zofran) 4 mg PRN Q8HRS PRN IV NAUSEA/VOMITING; Start 01/22/17 at 16:30; Stop 01/23/17 at 14:57; Status DC Morphine Sulfate 2 mg PRN Q2HR PRN IV PAIN; Start 01/22/17 at 16:30; Stop 01/23 at 16:29; Status DC Hydralazine HCl (Apresoline) 10 mg PRN Q4HRS PRN IVP ELEVATED BP, SEE COMMENTS Last administered on 01/23/17 10:42; Start 01/22/17 at 20:00 Lisinopril (Prinivil) 20 mg DAILY PO Last administered on 01/24/17 08:14; Start 01/23/17 at 09:00 Lisinopril (Prinivil) 20 mg 1X ONCE PO Last administered on 01/22/17 20:37; Start 01/22/17 at 20:00; Stop 01/22/17 at 20:01; Status DC Insulin Detemir (Levemir) 30 units QHS SQ Last administered on 01/23/17 22:15 ; Start 01/22/17 at 21:00 Cetirizine HCl (ZyrTEC) 10 mg DAILY PO Last administered on 01/24/17 08:13; Start 01/23/17 at 09:00 Cetirizine HCl (ZyrTEC) 10 mg 1X ONCE PO Last administered on 01/22/17 22:24 ; Start 01/22/17 at 22:30; Stop 01/22/17 at 22:31; Status DC Sodium Chloride (Normal Saline Flush) 3 ml QSHIFT PRN IV AFTER MEDS AND BLOOD DRAWS; Start 01/23/17 at 09:00 Sodium Chloride 1,000 ml @ 100 mls/hr Q10H IV Last administered on 01/24/17 05:30; Start 01/23/17 at 09:30 Aspirin (Children'S Aspirin) 81 mg DAILYWBKFT PO Last administered on 08:13; Start 01/23/17 at 10:00 Acetaminophen (Tylenol) 650 mg PRN Q6HRS PRN PO FEVER Last administered on 01/23 21:42; Start 01/23/17 at 09:00 Acetaminophen (Acetaminophen Supp) 650 mg PRN Q6HRS PRN [place] FEVER; Start at 09:00 Ondansetron HCl (Zofran) 4 mg PRN Q6HRS PRN IV NAUSEA/VOMITING; Start 01/23/17 at 09:00 Insulin Aspart (NovoLOG) 0-7 UNITS TIDWMEALS SQ Last administered on 01/23/17 17:03; Start 01/23/17 at 12:00 Dextrose (Dextrose 50%-Water Syringe) 12.5 gm PRN Q15MIN PRN IV SEE COMMENTS; Start 01/23/17 at 09:00; Status UNV Dextrose (Dextrose 50%-Water Syringe) 12.5 gm PRN Q15MIN PRN IV SEE COMMENTS; Start 01/23/17 at 09:00 Insulin Aspart (NovoLOG) 15 units 1X ONCE SQ Last administered on 01/23/17 11 :58; Start 01/23/17 at 11:45; Stop 01/23/17 at 11:49; Status DC Atorvastatin Calcium (Lipitor) 10 mg QHS PO Last administered on 01/23/17 21: 42; Start 01/23/17 at 21:00 Alprazolam (Xanax) 0.25 mg TID PRN PO ANXIETY / AGITATION Last administered on 01/23/17 19:25; Start 01/23/17 at 19:30 Fluticasone Propionate (Flonase) 2 spray DAILY NS Last administered on 08:14; Start 01/24/17 at 09:00 Sodium Chloride (Saline Mist Nasal) 1 feng PRN Q1HR PRN NS NASAL CONGESTION; Start 01/24/17 at 03:30 Active Scripts Active Reported Atenolol 100 Mg Tablet 1 Tab PO DAILY Metformin Hcl Er (Metformin Hcl) 500 Mg Tab.er.24h 500 Mg PO DAILYWBKFT Losartan Potassium 100 Mg Tablet 100 Mg PO DAILY Xultophy 100 Unit-3.6 mg/ml (Insulin Degludec/Liraglutide) 3 Ml Insuln.pen 18 Units SQ TIDPC Zyrtec (Cetirizine Hcl) 10 Mg Tablet 10 Mg PO DAILY Atorvastatin Calcium 40 Mg Tablet 1 Tab PO DAILY Lantus Solostar (Insulin Glargine,Hum.rec.anlog) 100 Unit/1 Ml Insuln.pen 30 Unit SQ QHS Byetta (Exenatide) 10 Mcg/0.04 Ml Pen.injctr 10 Mcg SQ BID Lisinopril 10 Mg Tablet 1 Tab PO DAILY Vitals/I & O Vital Sign - Last 24 Hours 01/23/17 01/23/17 01/23/17 01/23/17 14:54 17:12 19:00 20:00 Temp 98.7 99.1 98.6 98.7 99.1 98.6 Pulse 89 79 74 Resp 20 24 20 B/P (MAP) 126/70 (88) 146/84 (104) 150/79 (102) Pulse Ox 96 97 98 O2 Delivery Room Air Room Air Room Air Room Air 01/23/17 01/24/17 01/24/17 01/24/17 23:00 03:00 07:00 08:00 Temp 98.0 97.6 97.9 98.0 97.6 97.9 Pulse 73 70 63 Resp 20 20 20 B/P (MAP) 170/94 (119) 169/94 (119) 145/86 (105) Pulse Ox 99 99 98 O2 Delivery Room Air Room Air Room Air Room Air 01/24/17 08:14 Pulse 63 B/P (MAP) 145/86 Intake and Output 01/23/17 01/23/17 01/24/17 15:00 23:00 07:00 Intake Total 700 ml 200 ml Balance 700 ml 200 ml Images Brain MRI: FINDINGS: There is restricted diffusion within the left frontal periventricular white matter consistent with acute or subacute infarction. There is no susceptibility effect to suggest hemorrhage. There is no mass effect or midline shift. There is no hydrocephalus. There are few foci of T2/FLAIR hyperintensity within the cerebral white matter, a nonspecific finding likely due to chronic small vessel disease. There is a chronic lacunar infarct within the right thalamus. The orbits, paranasal sinuses and mastoid air cells are unremarkable. There are normal flow voids within the cerebral vessels. IMPRESSION: 1. Acute or subacute infarct within the left frontal periventricular white matter. 2. Few foci of signal change within the cerebral white matter, a nonspecific finding likely due to chronic small vessel disease. 3. Suspected chronic lacunar infarct within the right thalamus. Carotids: Findings: Right side: Peak systolic flow velocity of the CCA is 154 cm/sec. Peak systolic flow velocity of the ICA is 183 cm/sec. The ICA/CCA ratio is 1.19. Peak end diastolic flow velocity of the ICA is 38 cm/sec. The peak systolic velocity of the ECA is 108 cm/sec. Intimal thickening is seen involving the right common carotid artery. Diffuse calcified and noncalcified atherosclerotic plaquing can be seen involving the right carotid system. Left side: Peak systolic flow velocity of the CCA is 101 cm/sec. Peak systolic flow velocity of the ICA is 103 cm/sec. The ICA/CCA ratio is 1.02. Peak end diastolic flow velocity of the ICA is 25 cm/sec. Peak systolic flow velocity of the ECA is 217 cm/sec. Mild calcified and noncalcified plaquing is seen at the left carotid bulb. There is also evidence of mild noncalcified atherosclerotic plaquing involving the left common carotid artery. Vertebral arteries: Bilateral vertebral arteries demonstrate antegrade flow. Impression: 1. Fairly diffuse atherosclerotic plaquing is seen involving the right carotid system. There is elevation of velocity involving the right internal carotid artery corresponding to moderate (50-69% luminal diameter) stenosis. 2. Elevated velocity can be seen involving the left external carotid artery, compatible some component of stenosis. HUNTER LEES MD January 24, 2017 11:31
[2017-01-24] MEDS ORDERED: ASPI81TA2 PO (13:06)
[2017-01-24] MEDS ORDERED: FLUT16SP NS (13:06)
[2017-01-24] MEDS ORDERED: INSU100I17 SQ (13:06)
--- NOTE | 2017-01-24 13:11 | DISCH ---
DISCHARGE INSTRUCTIONS Condition on Discharge Condition on Discharge: Stable Activity After Discharge Activity Instructions for Disc: Activity as tolerated Diet after Discharge Diet after Discharge: Diabetic No Calorie Level Checks after Discharge Checks after discharge: Check blood sugar, ac/hs Contacting the DRRisa after DC Call your doctor for: If your condition worsens Follow-Up Follow up with: Dr. Shannon within 2 weeks Treatment/Equipment after DC Adaptive Equipment Issued: None JEAN SHANNON MD January 24, 2017 13:11
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
--- NOTE | 2017-01-25 09:44 | CARD ---
APPROVED REPORT EXAM: Two-dimensional and M-mode echocardiogram with Doppler and color Doppler. Other Information Quality : GoodHR: 85bpm Rhythm : NSR INDICATION CVA Echo Enhancing Agent Indication: Rule Out Septal Defect Agent/Amount Used: Agitated saline 8mL RISK FACTORS Hypertension Obesity Hyperlipidemia Diabetes 2D DIMENSIONS RVDd3.0 (2.9-3.5cm)Left Atrium(2D)3.9 (1.6-4.0cm) IVSd1.2 (0.7-1.1cm)Aortic Root(2D)3.2 (2.0-3.7cm) LVDd4.0 (3.9-5.9cm)LVOT Diameter2.5 (1.8-2.4cm) PWd1.5 (0.7-1.1cm)LVDs2.8 (2.5-4.0cm) FS (%) 30.5 %SV40.2 ml LVEF(%)58.6 (>50%) Aortic Valve AoV Peak Nando.181.3cm/sAoV VTI32.3cm AO Peak GR.13.1mmHgLVOT Peak Nando.129.1cm/s AO Mean GR.7mmHgAVA (VMAX)3.47cm2 Mitral Valve MV E Hjrmdpcl61.6cm/sMV E Peak Gr.4mmHg MV DECEL [id number] A Cgehmplr130.9cm/s MV E Mean Gr.2mmHgE/A Ratio0.7 MV A [id number] Pulmonary Valve PV Peak Fwsawghm406.5cm/s Pulmonary Vein S1 Kjmeaneh24.2cm/sD2 Zghbrlaj42.4cm/s PVa [id number] LEFT VENTRICLE The left ventricle is normal size. There is mild to moderate concentric left ventricular hypertrophy. The left ventricular systolic function is normal and the ejection fraction is within normal range. T he Ejection Fraction is 60-65%. There is grossly normal LV segmental wall motion. Transmitral Doppler flow pattern is Grade I-abnormal relaxation pattern. No left ventricle thrombus noted on this study. RIGHT VENTRICLE The right ventricle is normal size. There is normal right ventricular wall thickness. The right ventr icular systolic function is normal. ATRIA The left atrium is mildly dilated. The right atrium size is normal. Injection of agitated saline demo nstrated very small right to left shunting in a delayed fashion suggestive either of a very small PFO or pulmonary AVM. AORTIC VALVE The aortic valve is grossly normal in structure and function. Doppler and Color Flow revealed no sign ificant aortic regurgitation. There is no significant aortic valvular stenosis. MITRAL VALVE The mitral valve is normal in structure and function. There is no evidence of mitral valve prolapse. There is no mitral valve stenosis. Doppler and Color Flow revealed no mitral valve regurgitation note d. TRICUSPID VALVE Doppler and Color Flow revealed no tricuspid valve regurgitation noted. Unable to determine pulmonary artery pressure at exam time. PULMONIC VALVE Doppler and Color Flow revealed no pulmonic valvular regurgitation. There is no pulmonic valvular kenia nosis. GREAT VESSELS The aortic root is normal in size. The ascending aorta is normal in size. The IVC is normal in size a nd collapses >50% with inspiration. PERICARDIAL EFFUSION There is no evidence of significant pericardial effusion. Critical Notification Critical Value: No <Conclusion> The left ventricular systolic function is normal and the ejection fraction is within normal range. Th e Ejection Fraction is 60-65%. There is grossly normal LV segmental wall motion. Injection of agitated saline demonstrated very small right to left shunting in a delayed fashion sugg estive either of a very small PFO or pulmonary AVM. Consider MAKEDA for further evaluation if clinically indicated.
== END 2017-01-24 15:29 | disposition home or self-care (01) | DRG 66 ==
LOC: ER 12:31 → 6 SOUTH 16:12 → 5 SOUTH 01-23 16:03
PROVIDERS: ADMIT Family Medicine; ATTEND Family Medicine
DX: I63.9 Cerebral infarction, unspecified (principal); E66.9 Obesity, unspecified; E78.00 Pure hypercholesterolemia, unspecified; E78.5 Hyperlipidemia, unspecified; E11.65 Type 2 diabetes mellitus with hyperglycemia; I10 Essential (primary) hypertension; Z79.4 Long term (current) use of insulin; Z82.49 Family history of ischemic heart disease and other diseases of the circulatory system; Z68.39 Body mass index [BMI] 39.0-39.9, adult; Z83.3 Family history of diabetes mellitus; Z79.899 Other long term (current) drug therapy
CPT/HCPCS: 36415; 70450; 70551; 71010; 80048; 80053; 80061; 82962; 83036; 84484; 85027; 93005; 93880; C8929; J0360; J1815; J7030; 92610; 99285-25

== ENCOUNTER 2017-01-27 01:38 | Emergency (ER) | payer OTHER ==
[~2017-01-27] VITALS: Ht 162.6 cm; Wt 104.3 kg
[~2017-01-27 01:38] MED LIST: ASPI-630 PO; ATEN100T PO; ATOR40TA59 PO; CETI10TA22 PO; EXEN10PE3 SQ; FLUT16SP NS; INSU100I13 SQ; INSU100I17 SQ; INSU3INS SQ; LISI10TA2 PO; LOSA100T6 PO; METF500T4 PO; METF500T9 PO
[2017-01-27 02:16] VITALS: BP 140/72
--- NOTE | 2017-01-27 02:16 | PHYS DOC ---
Past Medical History Past Medical History: Diabetes-Type I, High Cholesterol, Hypertension Past Surgical History: No Surgical History Alcohol Use: Occasionally Drug Use: None Adult General Chief Complaint Chief Complaint: HYPERTENSION HPI HPI This is a 56 year old male presents for hypertension evaluation after he states he developed a mild headache while trying to sleep at home and went into a [facility] to have his blood pressure checked. He was found to be in the 200s systolic range. Upon arrival his blood pressure is 177/88. He states his headache has improved from a 5 out of 10 to a 3 out of 10. He is in no acute distress at this time. Patient was recently discharged from the hospital after what was a TIA-like event. His at bedside states he has not been taking his atenolol for the last 2 days by mistake. Eyes any chest pain or shortness of breath. Upon my initial assessment, the patient is in no acute distress. Review of Systems Review of Systems Constitutional: Denies fever or chills [] Eyes: Denies change in visual acuity, redness, or eye pain [] HENT: Denies nasal congestion or sore throat [] Respiratory: Denies cough or shortness of breath [] Cardiovascular: No additional information not addressed in HPI [] GI: Denies abdominal pain, nausea, vomiting, bloody stools or diarrhea [] : Denies dysuria or hematuria [] Musculoskeletal: Denies back pain or joint pain [] Integument: Denies rash or skin lesions [] Neurologic: Denies headache, focal weakness or sensory changes [] Endocrine: Denies polyuria or polydipsia [] Allergies Allergies Allergies Coded Allergies Type Severity Reaction Last Updated Verified No Known Drug Allergies 01/22/17 No Physical Exam Physical Exam Constitutional: Well developed, well nourished, no acute distress, non-toxic appearance. [] HENT: Normocephalic, atraumatic, bilateral external ears normal, oropharynx moist, no oral exudates, nose normal. [] Eyes: PERRLA, EOMI, conjunctiva normal, no discharge. [] Neck: Normal range of motion, no tenderness, supple, no stridor. [] Cardiovascular:Heart rate regular rhythm, no murmur [] Lungs & Thorax: Bilateral breath sounds clear to auscultation [] Abdomen: Bowel sounds normal, soft, no tenderness, no masses, no pulsatile masses. [] Skin: Warm, dry, no erythema, no rash. [] Back: No tenderness, no CVA tenderness. [] Extremities: No tenderness, no cyanosis, no clubbing, ROM intact, no edema. [] Neurologic: Alert and oriented X 3, normal motor function, normal sensory function, no focal deficits noted. [] Psychologic: Affect normal, judgement normal, mood normal. [] Current Patient Data Vital Signs Vital Signs Date Time Temp Pulse Resp B/P (MAP) Pulse Ox O2 Delivery O2 Flow Rate FiO2 01/27/17 02:16 62 19 140/72 (94) Room Air 01/27/17 02:06 98 01/27/17 01:58 98.1 98.1 EKG EKG EKG as interpreted by me shows a sinus rhythm with a rate of 62 bpm. There is a leftward axis. There are no obvious signs of ischemia. Radiology/Procedures Radiology/Procedures [] Course & Med Decision Making Course & Med Decision Making Pertinent Labs and Imaging studies reviewed. (See chart for details) This 56-year-old male has a blood pressure that was rechecked and found to be 160/76. Patient states he feels significantly better. He took his atenolol dose in the department as prescribed. I counseled of his blood pressure rechecked in next several days. He is also describing symptoms to me of sleep apnea and I instructed him that he should be evaluated by his primary care doctor for possible sleep study as this could also be a source of his headache and elevated blood pressure. There is no indication at this time to perform any laboratory workup. He is discharged without incident. Return precautions were provided and acknowledged by the patient. Dragon Disclaimer Dragon Disclaimer This electronic medical record was generated, in whole or in part, using a voice recognition dictation system. Departure Departure Impression: Primary Impression: Hypertension Disposition: 01 HOME, SELF-CARE Admitting Physician: Other Condition: STABLE Referrals: JEAN SHANNON MD (PCP) Patient Instructions: Hypertension, [id number] Additional Instructions: Please follow up with your primary doctor to have your blood pressure rechecked in 2-3 days and be evaluated for a sleep study. Return to the ER if you develop any worsening of your symptoms. ISMAEL OLIVEIRA DO Jan 27, 2017 02:16
--- NOTE | 2017-01-29 06:08 | EKG ---
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
== END 2017-01-27 02:27 | disposition home or self-care (01) ==
LOC: ER 01:38
DX: I10 Essential (primary) hypertension (principal); E78.00 Pure hypercholesterolemia, unspecified; E10.9 Type 1 diabetes mellitus without complications
CPT/HCPCS: 93005; 99284-25

== ENCOUNTER → 2017-03-06 | Outpatient (CLI) | payer OTHER ==
--- NOTE | 2017-03-07 15:19 | PDOC4 ---
PROCEDURE Procedure Home sleep study Date of study 03/06/[address] Brandt Schofield Mario is 56 years old who weighs 2:30 pounds with a BMI of 39. He underwent home sleep study performed by [place] [facility] on 03/06/2017. Total recording time was 422 minutes. During the night of study patient had no central apneas, 35 mixed apneas and 117 obstructive apneas. There were 20 hypopneas. Pts AHI for the night was 24 per hour with a supine AHI of 44 per hour Review of nocturnal oximetry study revealed patient's average oxygen saturation of 95% with the lowest of 74%. 9 minutes were spent with oxygen saturation of less than 90%. Mean heart rate was 52 bpm Impression 1. Moderate sleep apnea hypopnea syndrome with worsening during supine sleep. Total AHI 24 per hour with a supine AHI of 44 per hour 2. Mild nocturnal hypoxia security to CARLOS Recommendations 1. Patient would benefit from in lab CPAP titration study. 2. Once optimal CPAP pressures achieved then follow-up in 4-6 weeks to assess compliance with CPAP and to document clinical improvement. 3. Weight loss is strongly advised. 4. Cautioned regarding driving until symptoms of sleep apnea have resolved with the use of CPAP 5. Avoid central nervous system depressants. UMA VELÁZQUEZ MD Mar 07, 2017 15:18
== END | disposition home or self-care (01) ==
LOC: RT 08:02
PROVIDERS: ATTEND Family Medicine
DX: G47.33 Obstructive sleep apnea (adult) (pediatric) (principal)
CPT/HCPCS: G0399

== ENCOUNTER → 2018-12-13 | Outpatient (CLI) | payer OTHER ==
[~2018-12-13] MED LIST changes: +ALBU2.5V8 INH; +EXEN2PEN SQ; +HYDR-3165 PO; +HYDR12.575 PO; +INSU100I32 SQ; +INSU100V SQ; +LOSA100T14 PO; -LOSA100T6 PO; +METF500T16 PO; -METF500T4 PO; +METO-247 PO
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
== END | disposition home or self-care (01) ==
LOC: MRI 12:11
PROVIDERS: ATTEND Family Medicine
DX: S83.271A Complex tear of lateral meniscus, current injury, right knee, initial encounter (principal); M67.461 Ganglion, right knee; M94.261 Chondromalacia, right knee; W17.89XA Other fall from one level to another, initial encounter; Y93.89 Activity, other specified; Y92.89 Other specified places as the place of occurrence of the external cause; Y99.8 Other external cause status
CPT/HCPCS: 73721